=== PATIENT | female | born 1995 | race Caucasian/White ===

== ENCOUNTER 2024-05-29 20:40 | Emergency (ER) | payer BC, OTHER ==
[2024-05-29] MEDS ORDERED: Lidocaine 1% PF 5 ML VIAL ONE (20:51)
[2024-05-29] MEDS ORDERED: Boostrix 0.5 ML (Tdap) VIAL (>/=7 yrs of age) ONE (21:16)
== END 2024-05-29 21:50 | disposition home or self-care (01) ==
LOC: MADERS 20:40
DX: S61.213A Laceration without foreign body of left middle finger without damage to nail, initial encounter (principal); Z23 Encounter for immunization; W26.0XXA Contact with knife, initial encounter
CPT/HCPCS: 12001; 90471; 90715